=== PATIENT | male | born 1990 | race African-American/Black ===

== ENCOUNTER 2016-07-05 08:08 | Emergency (ER) | payer SELFPAY ==
--- NOTE | ~2016-07-05 | CR21 ---
[facility] A Service of [facility] & [facility] RADIOLOGY TEXT RESULTS PATIENT: AYESHA VANEGAS LOCATION: [facility] : [birth year] UNIT #: [id number] AGE: [address]: Norberto Fitzpatrick MD SEX: M ORDER DR: [id number] [facility] [address] [place], [place] [address] [id number] E MR#: [id number] #: [id number] NAME: AYESHA VANEGAS. : 1990 SEX: M STUDY DATE/TIME: 07/05/2016 7:49 UNIT: [facility] ROOM: STUDY DESCRIPTION: CR Ankle Min 3 Views Rt Attending Physician: Norberto Fitzpatrick M.D. Ordering Physician: Norberto Fitzpatrick M.D. MEDICAL IMAGING REPORT This report is preliminary unless electronic signature is present EXAM Right ankle 3 views 07/05/2016 COMPARISON None. HISTORY Twisting injury yesterday, pain and swelling. FINDINGS There is soft tissue swelling, primarily laterally but there is no fracture and the mortise is preserved. IMPRESSION Lateral soft tissue swelling without fracture or definite acute bony injury. Dictated by... Serg Cortés M.D. THIS IS AN ELECTRONICALLY VERIFIED REPORT Serg Cortés M.D. at 07/06/2016 3:51 PM TEV/felix TD: 07/05/2016 09:49 JOB #: [id number] MEDICAL IMAGING REPORT Page 1 of 1 COPY
[~2016-07-05 08:08] MED LIST: COMBIVENT MININEB INH; CORDARONE200 M1 PO; DILTIAZEM 24HR120 MG PO; FLEXERIL10 M1 PO; IBUPROFEN800 MG PO; LASIX20 MG PO; LISINOPRIL10 MG PO; LORTAB 5/500 TA1 TA2 PO; MYSOLINE50 M1 PO; NAPROSYN500 MG PO; REMERON15 MG PO; SPIRIVA18 MCG INH; SYNTHROID0.2 MG PO; XANAX0.5 MG PO; ZOLOFT PO
== END 2016-07-05 08:47 | disposition home or self-care (01) ==
LOC: CED 08:08
DX: S93.491A Sprain of other ligament of right ankle, initial encounter (principal); S93.421A Sprain of deltoid ligament of right ankle, initial encounter; X58.XXXA Exposure to other specified factors, initial encounter; Y92.830 Public park as the place of occurrence of the external cause
CPT/HCPCS: 29515; 73610; 99283